=== PATIENT | female | born 1965 | race Caucasian/White ===

== ENCOUNTER 2018-06-10 09:49 | Emergency (ER) | payer BC ==
[~2018-06-10] VITALS: Ht 165.1 cm; Wt 59.0 kg
[2018-06-10 10:14] LABS: ABSOLUTE LYMPHOCYTES 1.6 thou/uL (0.8-5.3); ABSOLUTE MONOCYTES 0.6 thou/uL (0.0-1.2); ABSOLUTE NEUTROPHILS 7.4 thou/uL (1.6-8.1); BASOPHILS 0.3 %; EOSINOPHILS 0.2 %; HEMOGLOBIN 13.6 gm/dL (12.0-15.0); LYMPHOCYTES 16.3 %; MCH 30.1 pg (26.0-34.0); MCHC 34.1 g/dL (28.0-37.0); MCV 88.2 fL (80.0-100.0); MONOCYTES 6.7 %; NUCLEATED RBCS 0 /100WBC; PLATELET COUNT* 258 thou/uL (150-400); POLYS 76.5 %; RBC 4.53 mil/uL (4.20-5.00); RDW-CV 12.9 % (10.5-14.5); WBC 9.6 thou/uL (4.0-11.0)
[2018-06-10 10:22] LABS: URINE BILIRUBIN NEGATIVE (Negative); URINE BLOOD 1+ (Negative); URINE CLARITY CLEAR; URINE COLOR YELLOW; URINE GLUCOSE-RANDOM NEGATIVE (Negative); URINE KETONES NEGATIVE (Negative); URINE LEUKOCYTES-REFLEX NEGATIVE (Negative); URINE NITRITE-REFLEX NEGATIVE (Negative); URINE PROTEIN TRACE (Negative)
[2018-06-10 10:24] LABS: ALBUMIN 3.9 g/dL (3.4-5.0); CALCIUM 8.9 mg/dL (8.5-10.1); CREATININE 0.8 mg/dL (0.6-1.3); POTASSIUM 3.2 mmol/L (3.5-5.1); TOTAL BILIRUBIN 0.7 mg/dL (<0.1-1.0); TOTAL PROTEIN 7.1 g/dL (6.4-8.2)
[2018-06-10 10:28] LABS: AMP/METHAMP Negative (Negative); BARBITURATES Negative (Negative); BENZODIAZEPINES Negative (Negative); COCAINE Negative (Negative); METHADONE Negative (Negative); OPIATES Negative (Negative); PCP Negative (Negative); THC POSITIVE (Negative)
[2018-06-10 10:31] LABS: BACTERIA-REFLEX 1-9 Few /HPF (None Seen); CASTS None Seen /LPF (None Seen); CRYSTALS None Seen /LPF (None Seen); MUCUS >6 Heavy strn/LPF (None Seen); SQUAMOUS 4-10 Moderate /LPF (0-3); URINE RBC 3-10 Few /HPF (0-2); URINE WBC-REFLEX 0-5 Rare /HPF (0-5)
[2018-06-10] MEDS ORDERED: ONDANSETRON HCL4 M2 PO (12:12)
[2018-06-10] MEDS ORDERED: PHENERGAN 25 MG25 M1 PO (12:12)
[2018-06-10 12:36] VITALS: BP 160/80
== END 2018-06-10 12:38 | disposition home or self-care (01) ==
LOC: M.ERS 09:49
PROVIDERS: Nurse Practitioner Family
DX: K56.7 Ileus, unspecified (principal); R11.2 Nausea with vomiting, unspecified; E87.6 Hypokalemia; Z90.710 Acquired absence of both cervix and uterus

== ENCOUNTER 2018-06-30 09:54 | Emergency (ER) | payer BC ==
[~2018-06-30] VITALS: Ht 165.1 cm; Wt 54.4 kg
[~2018-06-30 09:54] MED LIST: ONDANSETRON HCL4 M2 PO; PHENERGAN 25 MG25 M1 PO
[2018-06-30 10:26] LABS: URINE BILIRUBIN NEGATIVE (Negative); URINE BLOOD 1+ (Negative); URINE CLARITY CLEAR; URINE COLOR YELLOW; URINE GLUCOSE-RANDOM NEGATIVE (Negative); URINE KETONES 1+ (Negative); URINE LEUKOCYTES-REFLEX NEGATIVE (Negative); URINE NITRITE-REFLEX NEGATIVE (Negative); URINE PROTEIN 1+ (Negative); URINE SPECIFIC GRAVITY 1.015 (1.005-1.030); URINE UROBILINOGEN 0.2 E.U./dl (0.2-1.0)
[2018-06-30 10:34] LABS: ABSOLUTE BASOPHILS 0.1 thou/uL (0.0-0.2); ABSOLUTE LYMPHOCYTES 1.4 thou/uL (0.8-5.3); ABSOLUTE MONOCYTES 0.3 thou/uL (0.0-1.2); BASOPHILS 0.7 %; EOSINOPHILS 0.2 %; HEMATOCRIT 37.3 % (37.0-47.0); HEMOGLOBIN 13.1 gm/dL (12.0-15.0); MCH 31.1 pg (26.0-34.0); MCHC 35.2 g/dL (28.0-37.0); MCV 88.4 fL (80.0-100.0); MONOCYTES 2.8 %; NUCLEATED RBCS 0 /100WBC; PLATELET COUNT* 300 thou/uL (150-400); POLYS 82.3 %; RBC 4.22 mil/uL (4.20-5.00); RDW-CV 12.7 % (10.5-14.5); WBC 9.8 thou/uL (4.0-11.0)
[2018-06-30 10:35] LABS: AMORPHOUS PHOSPHATES Few /LPF (None Seen); BACTERIA-REFLEX 1-9 Few /HPF (None Seen); CASTS None Seen /LPF (None Seen); MUCUS >6 Heavy strn/LPF (None Seen); SQUAMOUS 0-3 Few /LPF (0-3); URINE RBC 3-10 Few /HPF (0-2); URINE WBC-REFLEX 0-5 Rare /HPF (0-5)
[2018-06-30 10:45] LABS: ALBUMIN 3.5 g/dL (3.4-5.0); CALCIUM 8.5 mg/dL (8.5-10.1); CREATININE 0.8 mg/dL (0.6-1.3); POTASSIUM 3.6 mmol/L (3.5-5.1); TOTAL BILIRUBIN 0.4 mg/dL (<0.1-1.0); TOTAL PROTEIN 7.2 g/dL (6.4-8.2)
[2018-06-30] MEDS ORDERED: HYDROCODONE-AP1 EAC6 PO (12:35)
[2018-06-30 12:45] VITALS: BP 140/82
== END 2018-06-30 12:46 | disposition home or self-care (01) ==
LOC: M.ERS 09:54
PROVIDERS: Nurse Practitioner Family
DX: R11.2 Nausea with vomiting, unspecified (principal); R10.13 Epigastric pain; Z90.710 Acquired absence of both cervix and uterus